=== PATIENT | female | born 1990 ===

== ENCOUNTER 2016-07-04 13:54 | Emergency (ER) | payer MEDICAID, OTHER ==
[2016-07-04 14:17] VITALS: BMI 18.8
[2016-07-04 14:20] VITALS: RESP 16; TEMP 98.6
[2016-07-04] MEDS ORDERED: Tmp-Smz 800 mg-160 mg DS Tab PO STA (14:27)
--- NOTE | 2016-07-04 14:27 | ED PDOC ---
Arrival/HPI - General Historian: Patient - General Chief Complaint: Female Genitourinary Time Seen by Provider: 07/04/16 14:20 - History of Present Illness Narrative History of Present Illness (Text): 07/04/16 14:23 26yo female who present with complaint of left sided vaginal Bartholin's abscess x 6days. States the abscess started draining yesterday. Notes multiple histories of similar abscess in the past. States she was given antibiotics the last time and she came to ED for the antibiotics. Denies fever, chills, any other complaint. (Aletha Vernon A) Past Medical History - Provider Review Nursing Documentation Reviewed: Yes - Past History Past History: No Previous - Infectious Disease Hx of Infectious Diseases: None - Tetanus Immunization Tetanus Immunization: Up to Date - Past Medical History Past Medical History: No Previous - Psychiatric Hx Depression: No Hx Emotional Abuse: No Hx Physical Abuse: No Hx Substance Use: Yes (marijuana) - Past Surgical History Past Surgical History: No Previous - Suicidal Assessment Feels Threatened In Home Enviroment: No Family/Social History - Physician Review Nursing Documentation Reviewed: Yes Family/Social History: Unknown Family HX Smoking Status: Current Some Days Smoker Hx Alcohol Use: No (socially) Hx Substance Use: Yes (marijuana) Substance used: CANNABIS Amount: 2 Hx Substance Use Treatment: No Allergies/Home Meds Allergies/Adverse Reactions: Allergies Cephalosporins Allergy (Verified 07/04/16 14:17) RASH Penicillins Allergy (Verified 07/04/16 14:17) SWELLING Review of Systems - Physician Review All systems were reviewed & negative as marked: Yes - Review of Systems Constitutional: Normal Eyes: Normal ENT: Normal Respiratory: Normal Cardiovascular: Normal Gastrointestinal: Normal Genitourinary Female: Normal Musculoskeletal: Normal Skin: Other (BArtholin's abscess) Neurological: Normal Endocrine: Normal Hemo/Lymphatic: Normal Psychiatric: Normal Physical Exam Vital Signs Reviewed: Yes Temperature: Afebrile Blood Pressure: Normal Pulse: Regular Respiratory Rate: Normal Appearance: Positive for: Well-Appearing, Non-Toxic, Comfortable Pain Distress: None Mental Status: Positive for: Alert and Oriented X 3 - Systems Exam Head: Present: Atraumatic, Normocephalic Pupils: Present: PERRL Extroacular Muscles: Present: EOMI Conjunctiva: Present: Normal Mouth: Present: Moist Mucous Membranes Neck: Present: Normal Range of Motion Respiratory/Chest: Present: Clear to Auscultation, Good Air Exchange. No: Respiratory Distress, Accessory Muscle Use Cardiovascular: Present: Regular Rate and Rhythm, Normal S1, S2. No: Murmurs Abdomen: Present: Normal Bowel Sounds. No: Tenderness, Distention, Peritoneal Signs Back: Present: Normal Inspection Upper Extremity: Present: Normal Inspection. No: Cyanosis, Edema Lower Extremity: Present: Normal Inspection. No: Edema Neurological: Present: GCS=15, CN II-XII Intact, Speech Normal Skin: Present: Warm, Dry, Normal Color, Abscess (small nondraining opening noted on left sided labia with small surrounding area of induration noted. Mild TTP. No erythema.). No: Rashes Psychiatric: Present: Alert, Oriented x 3, Normal Insight, Normal Concentration Vital Signs Temp Pulse Resp BP Pulse Ox 07/04/16 15:57 89 16 110/70 99 07/04/16 14:17 98.6 F 97 H 16 102/69 98 Medical Decision Making ED Course and Treatment: I was available for consultation during PA evaluation. The chart was reviewed by me, and I agree with disposition. The documented history was done by the physician heel cementer machine. The documented physical exam was done by the physician heel cementer machine. The documented procedures were done by the physician heel cementer machine. ( Felix Hughes) 07/04/16 15:03 Pt was comfortable and not in any distress in ED. Hemodynamically stable. Abscess was indurated. Pt was placed on abx. Advised to do warm sitz baths and apply warm compress to area. TRT ED in 2days for I & D. Referred to her PMD. (Aletha Vernon) - Medication Orders Current Medication Orders: Discontinued Medications Tramadol HCl (Ultram) 50 mg PO STAT STA Stop: 07/04/16 14:29 Last Admin: 07/04/16 15:55 Dose: 50 MG Trimethoprim/Sulfamethoxazole (Bactrim Ds Tab) 1 tab PO STAT STA PRN Reason: Protocol Stop: 07/04/16 14:28 Last Admin: 07/04/16 15:55 Dose: 1 TAB Disposition/Present on Arrival - Present on Arrival Any Indicators Present on Arrival: No History of DVT/PE: No History of Uncontrolled Diabetes: No Urinary Catheter: No History of Decub. Ulcer: No History Surgical Site Infection Following: None - Disposition Have Diagnosis and Disposition been Completed?: Yes Disposition Time: 15:05 Patient Plan: Discharge - Disposition Diagnosis: Abscess Disposition: HOME/ ROUTINE Condition: STABLE Discharge Instructions (ExitCare): Abscess (ED) Additional Instructions: Take medication as directed Follow up with your Doctor Return to ED in 2days for packing removal Prescriptions: Sulfamethoxazole/Trimethoprim [Bactrim DS 800 mg-160 mg] 1 tab PO BID #14 tab traMADol [Ultram] 50 mg PO Q6 #9 tab Referrals: [facility] [Outside] - Follow up with primary
[2016-07-04 15:57] VITALS: BP 110/70; PULSE 89; O2SAT 99
== END 2016-07-04 15:57 | disposition home or self-care (01) ==
LOC: ED 13:54
DX: N75.1 Abscess of Bartholin's gland (principal); F17.210 Nicotine dependence, cigarettes, uncomplicated

== ENCOUNTER 2017-06-04 21:52 | Emergency (ER) | payer SELFPAY ==
[2017-06-04 21:59] VITALS: BMI 19.3
[2017-06-04 22:12] VITALS: RESP 18; O2SAT 100
[2017-06-04 22:39] LABS: BASO # 0.03 K/mm3 (0.0-2.0); BASO % 0.2 % (0.0-3.0); EOS # 0.1 (0.0-0.7); EOS % 0.6 % (1.5-5.0); GRAN # 8.18 (1.4-6.5); GRAN % 63.7 % (50.0-68.0); HEMOGLOBIN 13.6 g/dL (12.0-16.0); LYMPH # 3.3 (1.2-3.4); LYMPH % 25.6 % (22.0-35.0); MEAN CELL VOLUME 92.3 fl (80.0-105.0); MEAN CORPUSCULAR HEMOGLOBIN 32.7 pg (25.0-35.0); MEAN CORPUSCULAR HGB CONC 35.4 g/dl (31.0-37.0); MEAN PLATELET VOLUME 9.6 fl (7.0-11.0); MONO # 1.3 (0.1-0.6); MONO % 9.9 % (1.0-6.0); RBC 4.16 10^6/uL (3.5-6.1); RED CELL DISTRIBUTION WIDTH 12.6 % (11.5-14.5); WHITE BLOOD COUNT 12.9 10^3/ul (4.5-11.0)
[2017-06-04 22:41] LABS: PH,URINE 7.5 (4.7-8.0); URINE BILIRUBIN NEGATIVE (NEGATIVE); URINE BLOOD MODERATE (NEGATIVE); URINE GLUCOSE (UA) NEGATIVE (NEGATIVE); URINE LEUKOCYTE ESTERASE NEGATIVE Leu/uL (NEGATIVE); URINE PROTEIN 30 mg/dL (<30 mg/dL); URINE UROBILINOGEN 0.2 E.U./dL (<1 E.U./dL)
[2017-06-04 22:45] LABS: URINE APPEARANCE SL CLOUDY (CLEAR); URINE COLOR YELLOW (YELLOW)
[2017-06-04 22:50] LABS: ALB/GLOB RATIO 1.4 (1.1-1.8); ALBUMIN 4.5 g/dL (3.0-4.8); ALT/SGPT 25 U/L (7-56); AST/SGOT 18 U/L (14-36); BLOOD UREA NITROGEN 10 mg/dL (7-21); CALCIUM 9.8 mg/dL (8.4-10.5); GFR AFRICAN-AMERICAN > 60; GFR NON-AFRICAN AMERICAN > 60
[2017-06-04 22:52] LABS: URINE AMORPHOUS SEDIMENT FEW; URINE BACTERIA MANY (NEG)
--- NOTE | 2017-06-04 23:27 | US ---
EXAM: US , transabdominal and transvaginal CLINICAL HISTORY: 27 years old, female; Signs and symptoms; Lmp or gestational age (in weeks): 05/10/2017; Other: Discharge; TECHNIQUE: Real-time transabdominal and transvaginal obstetrical ultrasound of the maternal pelvis and a first trimester with image documentation. Transvaginal imaging was used for better evaluation of the fetus and adnexa. COMPARISON: No relevant prior studies available. FINDINGS: Gestation: Single live intrauterine gestation. heart rate of 142 beats per minute. [place]-rump length of 1.1 cm, correlating with gestational age of 7 weeks 1 day. Uterus/cervix: No subchorionic hemorrhage. No cervical dilatation or effacement. Ovaries: Normal ovaries. No adnexal masses. Free fluid: No significant free fluid. IMPRESSION: 1. Single live intrauterine gestation.
--- NOTE | 2017-06-05 00:05 | ED PDOC ---
Arrival/HPI - General Chief Complaint: Female Genitourinary Time Seen by Provider: 06/04/17 22:07 Historian: Patient - History of Present Illness Narrative History of Present Illness (Text): 06/05/17 00:11 27yr old female presents today with concerns for . pt states today she noticed some vaginal discharge and lower abdominal cramping. pt states her LMP was 1 month ago. pt denies dizziness or weakness. pt states she has hx of cervical cancer. pt states she has been with the same partner for many years and had std testing 3 weeks ago. no n/v/d/c. no urinary symptoms. no other complaints. Time/Duration: Other (today) Quality: Cramping Severity Level: 1 Past Medical History - Provider Review Nursing Documentation Reviewed: Yes - Travel History Have you recently traveled outside [place] w/in the past 3 mons?: No - Past History Past History: No Previous - Infectious Disease Hx of Infectious Diseases: None - Tetanus Immunization Tetanus Immunization: Up to Date - Past Medical History Past Medical History: No Previous - Psychiatric Hx Depression: No Hx Emotional Abuse: No Hx Physical Abuse: No Hx Substance Use: Yes (marijuana) - Past Surgical History Past Surgical History: No Previous - Anesthesia Hx Anesthesia: No - Suicidal Assessment Feels Threatened In Home Enviroment: No Family/Social History - Physician Review Nursing Documentation Reviewed: Yes Family/Social History: Unknown Family HX Smoking Status: Heavy Smoker > 10 Cigarettes Daily Hx Alcohol Use: No (socially) Hx Substance Use: Yes (marijuana) Substance used: CANNABIS Amount: 2 Hx Substance Use Treatment: No Allergies/Home Meds Allergies/Adverse Reactions: Allergies Cephalosporins Allergy (Verified 07/04/16 14:17) RASH Penicillins Allergy (Verified 07/04/16 14:17) SWELLING Review of Systems - Review of Systems Constitutional: absent: Fatigue, Fevers Respiratory: absent: SOB, Cough Cardiovascular: absent: Chest Pain, Palpitations Gastrointestinal: Abdominal Pain. absent: Constipation, Diarrhea, Nausea, Vomiting Genitourinary Female: Vaginal Discharge. absent: Dysuria, Frequency, Hematuria Musculoskeletal: absent: Arthralgias, Back Pain, Neck Pain Skin: absent: Rash, Pruritis Neurological: absent: Headache, Dizziness Psychiatric: absent: Anxiety, Depression Physical Exam Vital Signs Reviewed: Yes Vital Signs Temp Pulse Resp BP Pulse Ox 06/05/17 00:33 98.3 F 85 18 124/77 100 06/04/17 21:52 98.5 F 98 H 18 121/66 100 Temperature: Afebrile Blood Pressure: Normal Pulse: Regular Respiratory Rate: Normal Appearance: Positive for: Well-Appearing, Non-Toxic, Comfortable Pain Distress: None Mental Status: Positive for: Alert and Oriented X 3 - Systems Exam Head: Present: Atraumatic Mouth: Present: Moist Mucous Membranes Neck: Present: Normal Range of Motion Respiratory/Chest: Present: Clear to Auscultation, Good Air Exchange. No: Respiratory Distress, Accessory Muscle Use Cardiovascular: Present: Regular Rate and Rhythm, Normal S1, S2. No: Murmurs Abdomen: Present: Normal Bowel Sounds. No: Tenderness, Distention, Peritoneal Signs, Rebound, Guarding Genitourinary/Pelvic Exam: Present: Normal External Genitalia, Cervical os Closed, Other (chaparoned by Vera ABREU RN). No: Vaginal Discharge, Vaginal Bleeding, Vaginal Lesions, Adenexal Tenderness, Adenexal Mass, Cervical Motion Tendernes, Odor Back: Present: Normal Inspection. No: CVA Tenderness, Midline Tenderness, Paraspinal Tenderness Upper Extremity: Present: Normal Inspection Lower Extremity: Present: Normal Inspection Neurological: Present: GCS=15, Speech Normal Skin: Present: Warm, Dry, Normal Color. No: Rashes Psychiatric: Present: Alert, Oriented x 3 Medical Decision Making ED Course and Treatment: 06/05/17 00:02 Patient is nontoxic well appearing in no distress. vital signs are stable. CBC: wbc; 12.9 CMP: wml Beta hC TYPE AND SCREEN: B+ Urinalysis: + blood, no leukocytes, 5-10 wbcs, 10-12 epithelials, gonorrhea and chlamydia cultures are pending. pt states she had testing 3 months ago; and does not want prophylactic treatment. Ultrasound: FINDINGS: Gestation: Single live intrauterine gestation. heart rate of 142 beats per minute. [place]-rump length of 1.1 cm, correlating with gestational age of 7 weeks 1 day. Uterus/cervix: No subchorionic hemorrhage. No cervical dilatation or effacement. Ovaries: Normal ovaries. No adnexal masses. Free fluid: No significant free fluid. IMPRESSION: 1. Single live intrauterine gestation. Discussed all the results the patient. advised f/u with the senior advisory within the next 2 days. advised immediate return if symptoms worsen,persist or if new symptoms develop. Impression: threatened , vaginal discharge, UTI Tylenol every 4 hours as needed for pain Increase fluids take vitamins daily macrobid; 1 tablet twice daily x 10 days. Followup with the research program assistant within the next 2 days Return immediately if symptoms worsen persist or if new symptoms develop: High fevers, heavy bleeding, severe abdominal pain, vomiting, diarrhea, dizziness or weakness or any other concerning symptoms develop. - Lab Interpretations Lab Results: 06/04/17 22:25 06/04/17 22:25 Lab Results 06/04/17 22:25: WBC 12.9 H, RBC 4.16, Hgb 13.6, Hct 38.4, MCV 92.3, MCH 32.7, MCHC 35.4, RDW 12.6, Plt Count 239, MPV 9.6, Gran % 63.7, Lymph % (Auto) 25.6, [place] % (Auto) 9.9 H, Eos % (Auto) 0.6 L, Baso % (Auto) 0.2, Gran # 8.18 H, Lymph # (Auto) 3.3, [place] # (Auto) 1.3 H, Eos # (Auto) 0.1, Baso # (Auto) 0.03 06/04/17 22:25: Blood Type B POSITIVE, Antibody Screen Negative, BBK History Checked Patient has bt 06/04/17 22:25: Beta HCG, Quant 303517.00 H 06/04/17 22:25: Sodium 139, Potassium 3.7, Chloride 103, Carbon Dioxide 25, Anion Gap 16, BUN 10, Creatinine 0.8, Est GFR ( Amer) > 60, Est GFR (Non- Af Amer) > 60, Random Glucose 104, Calcium 9.8, Total Bilirubin 0.8, AST 18, ALT 25, Alkaline Phosphatase 67, Total Protein 7.6, Albumin 4.5, Globulin 3.1, Albumin/Globulin Ratio 1.4 06/04/17 22:25: Urine Color Yellow, Urine Appearance Sl cloudy, Urine pH 7.5, Ur Specific [place] 1.020, Urine Protein 30 H, Urine Glucose (UA) Negative, Urine Ketones Trace H, Urine Blood Moderate H, Urine Nitrate Negative, Urine Bilirubin Negative, Urine Urobilinogen 0.2, Ur Leukocyte Esterase Negative, Urine RBC 10 - 15, Urine WBC 5 - 10, Ur Epithelial Cells 10 - 12, Amorphous Sediment Few, Urine Bacteria Many - RAD Interpretation Radiology Orders: 06/04/17 22:10 OB TRANSVAGINAL [US] Stat Disposition/Present on Arrival - Present on Arrival Any Indicators Present on Arrival: No History of DVT/PE: No History of Uncontrolled Diabetes: No Urinary Catheter: No History of Decub. Ulcer: No History Surgical Site Infection Following: None - Disposition Have Diagnosis and Disposition been Completed?: Yes Diagnosis: Threatened , Vaginal discharge, Urinary tract infection Disposition: HOME/ ROUTINE Disposition Time: 00:14 Patient Plan: Discharge Condition: GOOD Discharge Instructions (ExitCare): Kidney Infection, Threatened Miscarriage Additional Instructions: Tylenol every 4 hours as needed for pain Increase fluids take vitamins daily macrobid; 1 tablet twice daily x 10 days. Followup with the research program assistant within the next 2 days Return immediately if symptoms worsen persist or if new symptoms develop: High fevers, heavy bleeding, severe abdominal pain, vomiting, diarrhea, dizziness or weakness or any other concerning symptoms develop. Prescriptions: Nitrofurantoin Macrocrystals [Macrobid] 100 mg PO BID #20 cap Multivit/Folic Acid/I [ Plus] 1 tab PO DAILY #30 tab Referrals: Yamil Howard MD [Staff Provider] - Follow up with primary Mary Loyd MD [Staff Provider] - Follow up with primary Forms: [employer] (Togolese), WORK NOTE
[2017-06-05 00:35] VITALS: BP 124/77; PULSE 85; TEMP 98.3
== END 2017-06-05 00:35 | disposition home or self-care (01) ==
LOC: ED 21:52
DX: O20.0 Threatened abortion (principal); N39.0 Urinary tract infection, site not specified; N89.8 Other specified noninflammatory disorders of vagina; F17.210 Nicotine dependence, cigarettes, uncomplicated